=== PATIENT | female | born 1995 | race American Indian/Alaskan Native ===

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

== ENCOUNTER 2017-05-15 12:03 | Emergency (ER) | payer SELFPAY ==
[2017-05-15 12:11] VITALS: BP 127/66
[2017-05-15 13:36] LABS: BUN/Creatinine Ratio 15; Blood Urea Nitrogen 9 mg/dL (7-17); Calcium 8.9 mg/dL (8.4-10.2); Hemolysis Index 114
== END 2017-05-15 22:30 | disposition left against medical advice (07) ==
LOC: ED 12:03
DX: R07.9 Chest pain, unspecified (principal); Z53.21 Procedure and treatment not carried out due to patient leaving prior to being seen by health care provider
CPT/HCPCS: 80048; 93005; 93010

== ENCOUNTER 2017-05-18 19:05 | Emergency (ER) | payer SELFPAY ==
[2017-05-18] MEDS ORDERED: TYLENOL PO ONE (20:35)
[2017-05-18 20:41] LABS: Basophils % (Auto) 0.4 % (0.0-1.8); Eosinophils # (Auto) 0.1 K/mm3 (0.0-0.4); Eosinophils % (Auto) 1.8 % (0.0-4.3); Hemoglobin 12.5 gm/dl (10.1-14.3); Lymphocytes # (Auto) 1.4 K/mm3 (1.2-5.4); Mean Corpuscular HGB Conc 33 % (30-34); Mean Corpuscular Hemoglobin 30 pg (28-32); Mean Corpuscular Volume 90 fl (79-97); Monocytes # (Auto) 0.4 K/mm3 (0.0-0.8); Monocytes % (Auto) 7.4 % (0.0-7.3); Red Blood Count 4.22 M/mm3 (3.65-5.03); Red Cell Distribution Width 13.6 % (13.2-15.2)
[2017-05-18 20:48] LABS: Platelet Count 136 K/mm3 (140-440)
[2017-05-18 20:51] LABS: Partial Thromboplastin Time 26.4 Sec. (24.2-36.6)
--- NOTE | 2017-05-18 21:12 | Emergency Department Report ---
HPI - General Chief Complaint: Extremity Injury, Lower Time Seen by Provider: 05/18/17 20:40 - HPI HPI: 21-year-old female presents to the emergency department, dropped off by her mother, with a few different complaints. Patient says that she has had a 2- 3 day history of some midsternal nonradiating chest pain that is associated with some shortness of breath and a mixed dry and productive cough. She also has a 4-5 day history of some left calf pain but she denies any swelling or redness. Lastly, the patient says that she has been having some increased auditory hallucinations. They are not directing her to do anything and she denies any visual hallucinations, suicidal or homicidal ideations. She denies any history of schizophrenia or any other psychiatric history. She does have a past medical history of intracranial hypertension secondary to pseudotumor cerebri. No recent travel or sick contacts at home, no recent immobility or surgeries. She does not have a PCP. She has not taken anything for her symptoms presentation. She is a tobacco smoker but denies any illicit drug use. ED Past Medical Hx - Past Medical History Hx Hypertension: Yes (Intracranial Hypertension) Hx Asthma: Yes - Surgical History Additional Surgical History: tonsils/adnoids removed, cyst removed - Social History Smoking Status: Current Every Day Smoker Substance Use Type: None - Medications Home Medications: Home Medications Medication Instructions Recorded Confirmed Last Taken Type Naproxen [Naprosyn TAB] 500 mg PO BID #20 tablet 04/09/13 Unknown Rx Sulfamethoxazole/Trimethoprim 1 each PO BID #20 tablet 04/09/13 Unknown Rx [Bactrim DS] predniSONE [Deltasone] 40 mg PO QDAY #8 tab 01/17/14 Unknown Rx ALBUTEROL Inhaler [ProAir HFA 2 puff IH QID PRN #1 inhalation 07/10/14 Unknown Rx Inhaler] Albuterol *Only Ed* [Proventil 2.5 mg IH Q4H PRN 30 Days nebu 07/10/14 Unknown Rx 0.5% NEBS] Fluticasone/Salmeterol [Advair 1 puff IH BID #1 disk.w.dev 07/10/14 Unknown Rx Diskus 100-50 mcg] Loratadine [Claritin] 10 mg PO DAILY #30 tablet 07/10/14 Unknown Rx Penicillin Vk [Veetids TAB] 250 mg PO QID 10 Days tablet 08/08/14 Unknown Rx Ibuprofen [Motrin 800 MG tab] 800 mg PO Q8HR PRN #30 tablet 12/04/14 Unknown Rx traMADol [Ultram 50 MG tab] 50 mg PO Q6HR PRN #20 tablet 12/04/14 Unknown Rx ED Review of Systems ROS: Stated complaint: CP/COUGH Other details as noted in HPI Comment: All other systems reviewed and negative Constitutional: fever. denies: weakness Eyes: denies: eye pain, eye discharge, vision change ENT: denies: ear pain, throat pain Respiratory: cough, shortness of breath Cardiovascular: chest pain, palpitations. denies: edema Gastrointestinal: denies: abdominal pain, nausea, diarrhea Genitourinary: denies: urgency, dysuria, discharge Musculoskeletal: myalgia. denies: joint swelling Skin: denies: rash, lesions Neurological: denies: headache, weakness, paresthesias Physical Exam - Physical Exam Vital Signs: Vital Signs 05/18/17 05/18/17 19:21 20:50 Temperature 100.6 F H Pulse Rate 113 H Respiratory 16 18 Rate Blood Pressure 145/75 O2 Sat by Pulse 100 Oximetry Physical Exam: GENERAL: The patient is well-developed well-nourished. HENT: Normocephalic. Atraumatic. Patient has moist mucous membranes. EYES: Extraocular motions are intact. Pupils equal reactive to light bilaterally. NECK: Supple. Trachea is midline. CHEST/LUNGS: Clear to auscultation. There is no respiratory distress noted. HEART/CARDIOVASCULAR: Regular. There is no tachycardia. There is no murmur. ABDOMEN: Abdomen is soft, nontender. Patient has normal bowel sounds. Obese habitus. SKIN: Skin is warm and dry. There is no appreciable edema. NEURO: The patient is awake, alert, and oriented. The patient is cooperative. The patient has no focal neurologic deficits. The patient has normal speech and gait. MUSCULOSKELETAL: There is some tenderness palpation to the left calf but no obvious deformity.. There is no limitation range of motion. There is no evidence of acute injury. ED Course Vital Signs 05/18/17 05/18/17 19:21 20:50 Temperature 100.6 F H Pulse Rate 113 H Respiratory 16 18 Rate Blood Pressure 145/75 O2 Sat by Pulse 100 Oximetry ED Medical Decision Making - Lab Data Result diagrams: 05/18/17 20:37 05/18/17 20:37 - EKG Data -: EKG Interpreted by Me EKG shows normal: sinus rhythm, axis, intervals, QRS complexes, ST-T waves Rate: tachycardia (102 bpm) - EKG Data When compared to previous EKG there are: previous EKG unavailable Interpretation: other (Sinus tach, no STEMI) - Radiology Data Radiology results: report reviewed, image reviewed interpreted by me: Chest x-ray does not show any acute process. There are no pleural effusions, obvious pneumonia and there is no pneumothorax. PROCEDURE: NM LUNG SCAN PERF/VENT TECHNIQUE: Five mCi Tc-99m MAA was injected IV for pulmonary perfusion imaging in multiple projections. Fifteen mCi Xenon 133 gas was inhaled for pulmonary ventilation imaging in multiple projections. Injection site: RIGHT antecubital fossa. HISTORY: SOB, elevated dimer COMPARISON: Chest x-ray of the same date FINDINGS: Perfusion: There is 1 small subsegmental area of diminished perfusion identified in the right upper lung laterally. Remainder the lungs perfuse well.. Ventilation: No defects . IMPRESSION: Low probability of pulmonary embolus Transcribed By: [facility] Dictated By: KRYSTAL PAREKH MD Electronically Authenticated By: KRYSTAL PAREKH MD Signed Date/Time: 05/18/172105 - Medical Decision Making Patient presents to the emergency Department with complaints of some some chest tightness with a cough and low-grade fever. She complains of some left calf pain. She complains of some auditory hallucinations. Regarding the auditory hallucinations, they are intermittent and have been going on for a few months. Patient is calm and appropriate and does not have any suicidal or homicidal ideations and certainly does not appear to have any acute psychosis. Therefore she does not appear to be a candidate to be made a 1013 for inpatient psychiatric treatment. She was seen by the psych service station equipment mechanic who agrees that she is not a 1013 candidate and also got some more information that the voices she hears are from a man that she used to have intimate relations with in the past. The patient has been referred to the [facility] facility to speak with a psychiatrist regarding the hallucinations and/or some counseling. Regarding the left calf pain, the patient does have some tenderness to palpation but there is no appreciable edema. There is no rash or lesions. She does not have any risk factors for DVT. Nonetheless, the patient has been set up to return to the outpatient imaging for a left lower extremity venous Doppler since we are unable to do that this evening. The patient's labs have been mostly unremarkable. There is no leukocytosis, electrolyte abnormalities, renal insufficiency and the patient has negative troponin and a BNP of about 50. EKG is normal without ST elevation CO, ischemia or dysrhythmia. Chest x-ray does not show any acute process including no pneumothorax, pleural effusions or pneumonia. With the patient's complaint of left calf pain and some chest tightness, a d-dimer was done that came back slightly elevated and equivocal at 275. We are unable to do a CT angiography this evening so a VQ scan was done that came back low probability for a pulmonary embolism. The patient appears most likely to have an upper respiratory infection and/or viral syndrome. It is certainly possible that she has influenza. The symptoms have been going on for a few days and therefore she has not really a candidate for Tamiflu. She was given Tylenol and Toradol and a little bit of IV fluid and her vitals have improved and she is currently afebrile. She appears safe for discharge home at this time. She will get the venous Doppler done and if positive she'll be redirected to the emergency department. Otherwise she has been given multiple referrals for primary care clinics in the area. She will return to the ER with any worsening of her symptoms or any acute distress. - Differential Diagnosis URI, pneumonia, influenza, PE, DVT Critical Care Time: No Critical care attestation.: If time is entered above; I have spent that time in minutes in the direct care of this critically ill patient, excluding procedure time. ED Disposition Clinical Impression: Pain of left calf, Auditory hallucinations Upper respiratory infection Qualifiers: URI type: unspecified URI Qualified Code(s): J06.9 - Acute upper respiratory infection, unspecified Chest pain Qualifiers: Chest pain type: unspecified Qualified Code(s): R07.9 - Chest pain, unspecified Disposition: DC-01 TO HOME OR SELFCARE Is pt being admited?: No Condition: Stable Instructions: Chest Pain (ED), Fever in Adults (ED), Upper Respiratory Infection (ED) Additional Instructions: You have been given an order to return to the outpatient imaging center to have a left leg venous Doppler ultrasound to rule out a blood clot. If it resulted as positive, he will be redirected to the emergency department for further evaluation and treatment. Otherwise, follow-up with a primary care physician or primary care clinic as soon as possible. You can treat your fever and discomfort with Tylenol every 4 hours and ibuprofen every 6 hours, using weight-based dosing, as needed. Return to the emergency Department with any worsening of your symptoms or any acute distress. You have been given a referral for the [facility] facility to follow up regarding your auditory hallucinations and anxiety. Referrals: [facility] [Outside] - 3-5 Days [facility] [Outside] - 3-5 Days [facility] [Outside] - 3-5 Days [facility] [Outside] - 3-5 Days [facility] [Outside] - 3-5 Days Time of Disposition: 01:46
[2017-05-18 21:14] LABS: BUN/Creatinine Ratio 15; Blood Urea Nitrogen 9 mg/dL (7-17); Calcium 8.7 mg/dL (8.4-10.2); Hemolysis Index 63
[2017-05-18] MEDS ORDERED: TORADOL IV ONE (21:53)
[2017-05-18] MEDS ORDERED: NACL 0.9% 500 ML 500 ML IV ONE (21:53)
[2017-05-18] MEDS ORDERED: NACL 0.9% 1000 ML 1,000 ML ONE (22:38)
--- NOTE | 2017-05-18 23:45 | XRay Report ---
FINAL REPORT PROCEDURE: XR CHEST ROUTINE 2V TECHNIQUE: PA and lateral chest radiographs were obtained. CPT 06037 HISTORY: chestpain COMPARISON: No prior studies are available for comparison. FINDINGS: Heart: Normal. Mediastinum/Vessels: Normal. Lungs/Pleural space: Normal. Bony thorax: No acute osseous abnormality. Other: IMPRESSION: Normal examination.
--- NOTE | 2017-05-19 01:09 | Nuclear Medicine Report ---
FINAL REPORT PROCEDURE: NM LUNG SCAN PERF/VENT TECHNIQUE: Five mCi Tc-99m MAA was injected IV for pulmonary perfusion imaging in multiple projections. Fifteen mCi Xenon 133 gas was inhaled for pulmonary ventilation imaging in multiple projections. Injection site: RIGHT antecubital fossa. HISTORY: SOB, elevated dimer COMPARISON: Chest x-ray of the same date FINDINGS: Perfusion: There is 1 small subsegmental area of diminished perfusion identified in the right upper lung laterally. Remainder the lungs perfuse well.. Ventilation: No defects . IMPRESSION: Low probability of pulmonary embolus
[2017-05-19 01:21] VITALS: BP 122/49
== END 2017-05-19 02:00 | disposition home or self-care (01) ==
LOC: ED 19:05
DX: J06.9 Acute upper respiratory infection, unspecified (principal); R07.9 Chest pain, unspecified; I10 Essential (primary) hypertension; J45.909 Unspecified asthma, uncomplicated; F17.200 Nicotine dependence, unspecified, uncomplicated
CPT/HCPCS: 36415; 71046; 78582; 80048; 83880; 84484; 84703; 85025; 85379; 85610; 85730; 93005; 93010; 96374; 99284; A9540; A9558; J1885; J7030

== ENCOUNTER 2018-06-28 18:44 | Emergency (ER) | payer OTHER ==
--- NOTE | 2018-06-28 19:22 | Emergency Department Report ---
ED Psych HPI - General Chief Complaint: Psych Stated Complaint: MH Time Seen by Provider: 06/28/18 19:17 Source: patient, police Mode of arrival: Ambulatory - History of Present Illness Initial Comments: Patient is 22 years old female with history of depression on Zoloft. Patient brought to the emergency room via police for evaluation of anger outbursts at home. Patient stated that she had angry and she broke her mother at flower pot. Patient denied any suicidal ideation or homicidal ideation. No visual or auditory hallucination. Patient stated that she stop taking her Zoloft 2 weeks ago. Patient denied any other symptoms. MD Complaint: other (angery) History of same: No Quality: intermittent Associated Symptoms: denies other symptoms Treatments Prior to Arrival: none - Related Data Previous Rx's Medication Instructions Recorded Last Taken Type Naproxen [Naprosyn TAB] 500 mg PO BID #20 tablet 04/09/13 Unknown Rx Sulfamethoxazole/Trimethoprim 1 each PO BID #20 tablet 04/09/13 Unknown Rx [Bactrim DS] predniSONE [Deltasone] 40 mg PO QDAY #8 tab 01/17/14 Unknown Rx ALBUTEROL Inhaler (OR & NICU) 2 puff IH QID PRN #1 inhalation 07/10/14 Unknown Rx [ProAir HFA Inhaler] Albuterol *Only Ed* [Proventil 2.5 mg IH Q4H PRN 30 Days nebu 07/10/14 Unknown Rx 0.5% NEBS] Fluticasone/Salmeterol [Advair 1 puff IH BID #1 disk.w.dev 07/10/14 Unknown Rx Diskus 100-50 mcg] Loratadine [Claritin] 10 mg PO DAILY #30 tablet 07/10/14 Unknown Rx Penicillin Vk [Veetids TAB] 250 mg PO QID 10 Days tablet 08/08/14 Unknown Rx Ibuprofen [Motrin 800 MG tab] 800 mg PO Q8HR PRN #30 tablet 12/04/14 Unknown Rx traMADol [Ultram 50 MG tab] 50 mg PO Q6HR PRN #20 tablet 12/04/14 Unknown Rx Menthol/Camphor [Magnolia Correll 1 applic TP TID PRN #1 tube 03/27/18 Unknown Rx Ointment] Naproxen [Naprosyn] 500 mg PO BID PRN #30 tablet 03/27/18 Unknown Rx Allergies Allergy/AdvReac Type Severity Reaction Status Date / Time Johnson Allergy Anaphylaxis Verified 05/04/14 09:13 raspberry Allergy Anaphylaxis Verified 05/04/14 09:13 tomato Allergy Anaphylaxis Verified 05/04/14 09:13 ED Review of Systems ROS: Stated complaint: MH Other details as noted in HPI Comment: All other systems reviewed and negative Constitutional: denies: chills, fever Respiratory: denies: cough, orthopnea, shortness of breath, SOB with exertion, SOB at rest Cardiovascular: denies: chest pain, palpitations Gastrointestinal: denies: abdominal pain, nausea, vomiting Genitourinary: denies: urgency, dysuria Musculoskeletal: denies: back pain Neurological: denies: headache, weakness Psychiatric: anxiety. denies: depression, auditory hallucinations, visual hallucinations, homicidal thoughts, suicidal thoughts ED Past Medical Hx - Past Medical History Previous Medical History?: Yes Hx Hypertension: Yes (Intracranial Hypertension) Hx Psychiatric Treatment: Yes (Anxiety, depression, schizoaffective,) Hx Asthma: Yes - Surgical History Past Surgical History?: Yes Additional Surgical History: tonsils/adnoids removed, cyst removed - Social History Smoking Status: Current Every Day Smoker - Medications Home Medications: Home Medications Medication Instructions Recorded Confirmed Last Taken Type Naproxen [Naprosyn TAB] 500 mg PO BID #20 tablet 04/09/13 Unknown Rx Sulfamethoxazole/Trimethoprim 1 each PO BID #20 tablet 04/09/13 Unknown Rx [Bactrim DS] predniSONE [Deltasone] 40 mg PO QDAY #8 tab 01/17/14 Unknown Rx ALBUTEROL Inhaler (OR & NICU) 2 puff IH QID PRN #1 inhalation 07/10/14 Unknown Rx [ProAir HFA Inhaler] Albuterol *Only Ed* [Proventil 2.5 mg IH Q4H PRN 30 Days nebu 07/10/14 Unknown Rx 0.5% NEBS] Fluticasone/Salmeterol [Advair 1 puff IH BID #1 disk.w.dev 07/10/14 Unknown Rx Diskus 100-50 mcg] Loratadine [Claritin] 10 mg PO DAILY #30 tablet 07/10/14 Unknown Rx Penicillin Vk [Veetids TAB] 250 mg PO QID 10 Days tablet 08/08/14 Unknown Rx Ibuprofen [Motrin 800 MG tab] 800 mg PO Q8HR PRN #30 tablet 12/04/14 Unknown Rx traMADol [Ultram 50 MG tab] 50 mg PO Q6HR PRN #20 tablet 12/04/14 Unknown Rx Menthol/Camphor [Magnolia Correll 1 applic TP TID PRN #1 tube 03/27/18 Unknown Rx Ointment] Naproxen [Naprosyn] 500 mg PO BID PRN #30 tablet 03/27/18 Unknown Rx ED Physical Exam - General Limitations: No Limitations General appearance: alert, in no apparent distress - Head Head exam: Present: atraumatic, normocephalic, normal inspection - Eye Eye exam: Present: normal appearance, PERRL - ENT ENT exam: Present: normal exam, normal orophraynx, mucous membranes moist - Neck Neck exam: Present: normal inspection, full ROM. Absent: tenderness, meningismus, lymphadenopathy, thyromegaly - Respiratory Respiratory exam: Present: normal lung sounds bilaterally - Cardiovascular Cardiovascular Exam: Present: regular rate, normal rhythm, normal heart sounds - GI/Abdominal GI/Abdominal exam: Present: soft, normal bowel sounds. Absent: distended, tende rness, guarding, rebound, rigid, organomegaly, mass, bruit, pulsatile mass - Extremities Exam Extremities exam: Present: normal inspection, full ROM, normal capillary refill - Back Exam Back exam: Present: normal inspection - Neurological Exam Neurological exam: Present: alert, oriented X3, CN II-XII intact, normal gait - Psychiatric Psychiatric exam: Present: normal mood. Absent: depressed, agitated, anxious, flat affect, manic, homicidal ideation, suicidal ideation - Skin Skin exam: Present: warm, intact, normal color ED Course Vital Signs 06/28/18 06/28/18 18:47 20:08 Temperature 98.2 F 98.5 F Pulse Rate 87 89 Respiratory 18 18 Rate Blood Pressure 136/73 Blood Pressure 121/76 [Right] O2 Sat by Pulse 100 100 Oximetry ED Medical Decision Making - Lab Data Result diagrams: 06/28/18 19:32 06/28/18 19:32 - Medical Decision Making Patient is 22 years old female with history of depression on Zoloft. Patient brought to the emergency room via police for evaluation of anger outbursts at home. Patient stated that she had angry and she broke her mother at flower pot. Patient denied any suicidal ideation or homicidal ideation. No visual or auditory hallucination. Patient stated that she stop taking her Zoloft 2 weeks ago. Patient denied any other symptoms. Patient remained calm in the ER. Patient has been evaluated by mental health. Recommended for outpatient follow-up. Patient does not meet any criteria for involuntary holding. Patient would be discharged home to follow-up as an outpatient. Critical care attestation.: If time is entered above; I have spent that time in minutes in the direct care of this critically ill patient, excluding procedure time. ED Disposition Clinical Impression: Outbursts of anger, Depression Disposition: DC-01 TO HOME OR SELFCARE Is pt being admited?: No Condition: Stable Instructions: Depression (ED) Referrals: JAYCEE CAMPBELL MD [Primary Care Provider] - 3-5 Days
[2018-06-28 20:09] VITALS: BP 121/76
[2018-06-28 20:10] LABS: Hematocrit 41.8 % (30.3-42.9); Hemoglobin 13.5 gm/dl (10.1-14.3); Mean Corpuscular HGB Conc 32 % (30-34); Mean Corpuscular Volume 92 fl (79-97); Platelet Count 324 K/mm3 (140-440); Red Blood Count 4.55 M/mm3 (3.65-5.03); Red Cell Distribution Width 14.3 % (13.2-15.2)
[2018-06-28 20:14] LABS: BUN/Creatinine Ratio 13; Blood Urea Nitrogen 9 mg/dL (7-17); Calcium 9.5 mg/dL (8.4-10.2); Hemolysis Index 24
[2018-06-28 20:16] LABS: Lymphocytes % (Auto) 31.4 % (13.4-35.0); Monocytes % (Auto) 3.5 % (0.0-7.3)
[2018-06-28 20:20] LABS: Basophils # (Auto) 0.1 K/mm3 (0.0-0.1); Eosinophils # (Auto) 0.1 K/mm3 (0.0-0.4); Lymphocytes # (Auto) 2.3 K/mm3 (1.2-5.4); Monocytes # (Auto) 0.3 K/mm3 (0.0-0.8)
[2018-06-28 20:39] LABS: Amphetamine Screen,Urine PRESUMPTIVE NEGATIVE; Benzodiazepines Screen,Urine PRESUMPTIVE NEGATIVE; Cocaine Screen,Urine PRESUMPTIVE NEGATIVE; Methadone Screen,Urine PRESUMPTIVE NEGATIVE; Opiate Screen,Urine PRESUMPTIVE NEGATIVE
[2018-06-28 20:53] LABS: Cannabinoid Screen,Urine PRESUMPTIVE POSITIVE
[2018-06-28 20:54] LABS: Bilirubin,Urine NEG (Negative); Blood,Urine NEG (Negative); Color,Urine Colorless (Yellow); Protein,Urine <15 mg/dL mg/dL (Negative); RBC,Urine < 1.0 /HPF (0.0-6.0); Urobilinogen,Urine < 2.0 mg/dL (<2.0)
== END 2018-06-28 21:33 | disposition home or self-care (01) ==
LOC: EEVIPCON 18:44 → ED 18:44
DX: F32.9 Major depressive disorder, single episode, unspecified (principal); R45.4 Irritability and anger; F25.9 Schizoaffective disorder, unspecified; J45.909 Unspecified asthma, uncomplicated; F17.200 Nicotine dependence, unspecified, uncomplicated
CPT/HCPCS: 36415; 80048; 80307; 81001; 84703; 85025; 99284; G0480; 80320

== ENCOUNTER 2019-01-21 14:29 | Emergency (ER) | payer SELFPAY ==
[2019-01-21 15:00] LABS: Basophils % (Auto) 0.7 % (0.0-1.8); Eosinophils # (Auto) 0.1 K/mm3 (0.0-0.4); Eosinophils % (Auto) 2.7 % (0.0-4.3); Hematocrit 37.8 % (30.3-42.9); Hemoglobin 12.6 gm/dl (10.1-14.3); Lymphocytes # (Auto) 1.8 K/mm3 (1.2-5.4); Lymphocytes % (Auto) 34.7 % (13.4-35.0); Mean Corpuscular HGB Conc 33 % (30-34); Mean Corpuscular Volume 89 fl (79-97); Monocytes # (Auto) 0.2 K/mm3 (0.0-0.8); Monocytes % (Auto) 3.4 % (0.0-7.3); Platelet Count 348 K/mm3 (140-440); Red Blood Count 4.26 M/mm3 (3.65-5.03); Red Cell Distribution Width 13.6 % (13.2-15.2)
[2019-01-21 15:12] LABS: BUN/Creatinine Ratio 8; Blood Urea Nitrogen 6 mg/dL (7-17); Calcium 8.9 mg/dL (8.4-10.2); Hemolysis Index 23
--- NOTE | 2019-01-21 15:16 | Emergency Department Report ---
<LEXI CHRISTIANSENCarolann Alonzo - Last Filed: 01/22/19 10:32> ED Psych HPI - General Chief Complaint: Psych Stated Complaint: MH/POSS OVERDOSE Time Seen by Provider: 01/21/19 14:48 - Related Data Home Medications Medication Instructions Recorded Confirmed Last Taken ALBUTEROL Inhaler (OR & NICU) 2 puff IH QID PRN 01/21/19 01/21/19 Unknown [Proair] QUEtiapine [SEROquel] 300 mg PO QHS 01/21/19 01/22/19 Unknown Sertraline [Zoloft] 50 mg PO QAM 01/21/19 01/22/19 Unknown hydrOXYzine PAMOATE [Vistaril] 50 mg PO BID 01/21/19 01/22/19 Unknown Allergies Allergy/AdvReac Type Severity Reaction Status Date / Time Johnson Allergy Anaphylaxis Verified 01/21/19 14:34 raspberry Allergy Anaphylaxis Verified 01/21/19 14:34 tomato Allergy Anaphylaxis Verified 01/21/19 14:34 ED Past Medical Hx - Medications Home Medications: Home Medications Medication Instructions Recorded Confirmed Last Taken Type ALBUTEROL Inhaler (OR & NICU) 2 puff IH QID PRN 01/21/19 01/21/19 Unknown History [Proair] QUEtiapine [SEROquel] 300 mg PO QHS 01/21/19 01/22/19 Unknown History Sertraline [Zoloft] 50 mg PO QAM 01/21/19 01/22/19 Unknown History hydrOXYzine PAMOATE [Vistaril] 50 mg PO BID 01/21/19 01/22/19 Unknown History ED Course - Reevaluation(s) Reevaluation #1: 01/22/19 10:33 Patient has become agitated cussing at staff she is to stay in her room. Provider ordered Haldol 5 mg IM and Ativan 2 mg IM. ED Medical Decision Making - Lab Data Result diagrams: 01/21/19 14:38 01/21/19 14:38 ED Disposition Clinical Impression: Suicidal ideation, Overdose Disposition: DC/TX-65 PSY HOSP/PSY UNIT Condition: Stable Referrals: PRIMARY CARE,MD [Primary Care Provider] - 3-5 Days <ROSA GONZALEZ - Last Filed: 01/22/19 21:26> ED Psych HPI - General Source: patient, family Mode of arrival: Ambulatory - History of Present Illness Initial Comments: 23-year-old female with history of schizophrenia presents to ED with attempted overdose. Patient states she took 10 trazodone pills approximately one hour ago in a suicide attempt. Patient states she does not want to be here anymore. Patient currently takes Vistaril, Seroquel, Zoloft. Mother states patient is no longer prescribed trazodone. Mother states she has been calling police on patient all week due to her being violated, punching holes in dixon. Mother called police on patient today, patient ran away from the house. A bystander called police because she was lying in the grass. Patient states she was in the grass because she got hot and tired. Patient reports auditory hallucinations, states voices are telling her that people hate her. Complaint: suicidal ideation Associated Psychiatric Symptoms: depression, suicidal ideation, auditory hallucinations History of same: Yes Quality: constant Improves With: none Worsens With: none Associated Symptoms: denies other symptoms Treatments Prior to Arrival: none If Self Harm: intentional overdose Details of Plan: overdose on trazadone ED Review of Systems ROS: Stated complaint: MH/POSS OVERDOSE Other details as noted in HPI Comment: All other systems reviewed and negative Psychiatric: auditory hallucinations, suicidal thoughts ED Past Medical Hx - Past Medical History Previous Medical History?: Yes Hx Hypertension: Yes (Intracranial Hypertension) Hx Psychiatric Treatment: Yes (Anxiety, depression, schizoaffective,) Hx Asthma: Yes - Surgical History Past Surgical History?: Yes Additional Surgical History: tonsils/adnoids removed, cyst removed - Social History Smoking Status: Current Every Day Smoker Substance Use Type: Alcohol, Marijuana ED Physical Exam - General Limitations: No Limitations General appearance: alert, in no apparent distress, obese - Head Head exam: Present: atraumatic, normocephalic - Eye Eye exam: Present: normal appearance, PERRL, EOMI - ENT ENT exam: Present: mucous membranes moist - Neck Neck exam: Present: normal inspection - Respiratory Respiratory exam: Present: normal lung sounds bilaterally. Absent: respiratory distress - Cardiovascular Cardiovascular Exam: Present: normal rhythm, tachycardia - GI/Abdominal GI/Abdominal exam: Present: soft. Absent: distended, tenderness - Extremities Exam Extremities exam: Present: normal inspection - Neurological Exam Neurological exam: Present: alert, oriented X3, CN II-XII intact. Absent: motor sensory deficit - Psychiatric Psychiatric exam: Present: depressed, suicidal ideation - Skin Skin exam: Present: warm, dry, intact, normal color ED Course Vital Signs 01/21/19 01/21/19 01/21/19 14:34 19:03 21:01 Temperature 97.8 F 98 F Pulse Rate 112 H 71 73 Respiratory 18 16 16 Rate Blood Pressure 137/72 Blood Pressure 114/40 123/65 [Left] O2 Sat by Pulse 98 99 98 Oximetry 01/22/19 01/22/19 01/22/19 02:46 08:43 20:00 Temperature 98 F 98.2 F 97.3 F L Pulse Rate 66 68 81 Respiratory 18 16 18 Rate Blood Pressure Blood Pressure 144/63 108/54 118/70 [Left] O2 Sat by Pulse 95 96 94 Oximetry ED Medical Decision Making - Lab Data Result diagrams: 01/21/19 14:38 01/21/19 14:38 - EKG Data -: EKG Interpreted by Mt EKG shows normal: sinus rhythm, axis, intervals, QRS complexes, ST-T waves Rate: normal - EKG Data Interpretation: no acute changes - Medical Decision Making 23 yo F w/ report of trazadone ingestion, 10 pills, approx 1 hr prior to arrival in a suicide attempt. Poison control was contacted, no charcoal administration advised. Recommended supportive care. Labs are normal. Drug screen is positive for marijuana. The fluids being given. EKG is normal. Vital signs are stable. Patient placed on 1013. Will dispo per psych. Critical care attestation.: If time is entered above; I have spent that time in minutes in the direct care of this critically ill patient, excluding procedure time. ED Disposition Is pt being admited?: No
[2019-01-21 16:09] LABS: Bacteria,Urine 1+ /HPF (Negative); Bilirubin,Urine NEG (Negative); Blood,Urine LG (Negative); Color,Urine Yellow (Yellow); Mucus,Urine 1+ /HPF
[2019-01-21] MEDS ORDERED: SODIUM CHLORIDE 0.9% 1000 ML 1,000 ML IV ONE (16:10)
[2019-01-21 16:11] LABS: HCG Qualitative,Urine Negative (Negative)
[2019-01-21 16:16] LABS: Benzodiazepines Screen,Urine PRESUMPTIVE NEGATIVE; Cocaine Screen,Urine PRESUMPTIVE NEGATIVE; Methadone Screen,Urine PRESUMPTIVE NEGATIVE; Opiate Screen,Urine PRESUMPTIVE NEGATIVE
[2019-01-21 16:28] LABS: Amphetamine Screen,Urine PRESUMPTIVE POSITIVE; Cannabinoid Screen,Urine PRESUMPTIVE POSITIVE
[2019-01-21 17:57] LABS: Alanine Aminotransferase 19 units/L (7-56); Albumin 4.1 g/dL (3.9-5)
[2019-01-21 17:58] LABS: Bilirubin,Direct < 0.2 mg/dL (0-0.2)
--- NOTE | 2019-01-22 09:48 | Consultation ---
History of Present Illness - Reason for Consult Consult date: 01/22/19 Reason for consult: Mental Health Evaluation Requesting physician: ROSA GONZALEZ - Chief Complaint Chief complaint: 'I don't want to talk" - History of Present Psychiatric Illness 23 y.o. AA female who presented to the ER for overdosing on several Trazodone pills. Today the patient was calm, but requested that the psy assessment be completed tomorrow. She do not want to talk at this time. Medications and Allergies Allergies Allergy/AdvReac Type Severity Reaction Status Date / Time Johnson Allergy Anaphylaxis Verified 01/21/19 14:34 raspberry Allergy Anaphylaxis Verified 01/21/19 14:34 tomato Allergy Anaphylaxis Verified 01/21/19 14:34 Home Medications Medication Instructions Recorded Confirmed Last Taken Type ALBUTEROL Inhaler (OR & NICU) 2 puff IH QID PRN 01/21/19 01/21/19 Unknown History [Proair] QUEtiapine [SEROquel] 200 mg PO QHS 01/21/19 01/21/19 Unknown History Sertraline [Zoloft] 200 mg PO QHS 01/21/19 01/21/19 Unknown History hydrOXYzine PAMOATE [Vistaril] 25 mg PO BID 01/21/19 01/21/19 Unknown History Past psychiatric history - Past Medical History Past Medical History: other (Unable to obtain ) Past Surgical History: Other (Unable to obtain ) - past Psychiatric treatment and history psychiatric treatment history: Unable to obtain a psy hx and a fam psy hx. - Social History Social history: other (Unabel to obtain ) Mental Status Exam - Vital signs Last Vital Signs Temp 98.2 F 01/22/19 08:43 Pulse 68 01/22/19 08:43 Resp 16 01/22/19 08:43 BP 108/54 01/22/19 08:43 Pulse Ox 96 01/22/19 08:43 - Exam Narrative exam: Unable to complete the MSE at this time. See impression. Results Result Diagrams: 01/21/19 14:38 01/21/19 14:38 Abnormal lab results 01/21/19 01/21/19 01/21/19 Range/Units 14:38 14:38 14:38 Carbon Dioxide 19 L (22-30) mmol/L BUN 6 L (7-17) mg/dL Salicylates < 0.3 L (2.8-20.0) mg/dL Acetaminophen < 5.0 L (10.0-30.0) ug/mL All other labs normal. Assessment and Plan Assessment and plan: Impression: Today the patient was calm, but requested that the psy assessment be completed in 24 hours. She do not want to talk at this time. The patient was positive for amphetamines and marijuana. Recommendation/Plan: Continue 1013. Dispo: The patient was referred to inpatient psy services. Will staff with Dr Deborah Weber.
[2019-01-22] MEDS ORDERED: LORazepam 2 MG/ML VIAL IM ONE (10:31)
[2019-01-22] MEDS ORDERED: HALOPERIDOL LACTATE 5 MG/1 ML INJ IM ONE (10:31)
[2019-01-22] MEDS ORDERED: LORazepam 2 MG/ML VIAL ONE (10:34)
[2019-01-22] MEDS ORDERED: ZIPRASIDONE MESYLATE 20 MG VIAL IM ONE ×2 (10:35→12:00)
[2019-01-22] MEDS ORDERED: KETAMINE 500 MG/5 ML VIAL MDV IM ONE (10:54)
[2019-01-22] MEDS ORDERED: ALBUTEROL 8.5 GM INHALATION IH PRN (21:09)
[2019-01-22] MEDS ORDERED: QUEtiapine 100 MG TAB PO SCH (22:00)
[2019-01-22] MEDS ORDERED: QUEtiapine 200 MG TAB PO SCH (22:00)
--- NOTE | 2019-01-23 09:19 | Progress Note ---
Subjective - Reason for Consult Consult date: 01/23/19 Reason for consult: Psychiatry Follow-up - Chief Complaint Chief complaint: 'I'm having issues with my mother" 23 y.o. AA female who presented to the ER for overdosing on several Trazodone pills. Today the patient was calm during the assessment. She stated that she got into an argument with her mother and decided to take several Trazodone pills. She stated that she wanted everything to go away, she would not confirm or deny that she attempted suicide. She denies any previous suicide attempts. She stated that she is seen at [facility] for depression/anxiety. She rate her depression 8/10, with h1o being the worse. She was asked about other stressors, she didn't answer the question. She denies SI/HI's and AVH's. She stated that she feel "sleepy." She acknowledged smoking marijuana, but denies amphetamine use. She denies alcohol consumption (etoh). Mental Status Exam - Vital signs Last Vital Signs Temp 97.9 F 01/23/19 07:00 Pulse 61 01/23/19 07:00 Resp 18 01/23/19 07:00 BP 117/72 01/23/19 07:00 Pulse Ox 100 01/23/19 07:00 - Exam Narrative exam: MSE: Appearance: calm Behavior: regular eye contact Speech: regular rate and loud tone Mood: "depressed" Affect: congruent to mood Thought Process: circumstantial Thought Content: denies SI/HI's with AVH's Motor Activity: ambulatory Cognition: A/Ox 3 Insight: variable Judgment: poor + Assessment and Plan Impression: MDD. Cannabis Use DO. Hx of Anxiety. Family Dynamic issues. Today the patient was calm during the assessment. DDx: Substance Induced Mood DO, Substance Use DO (amphetamines) Recommendation/Plan: Continue 1013, Zoloft 50 mg PO daily for depression/anxiety, and modify Vistaril to 25 mg PO BID for anxiety. Discussed possible suicidality/medication induced eugenio with the patient reference Zoloft, she verbalized understanding. Dispo: The patient was referred to inpatient psy services. Staffed with Dr Deborah Weber.
[2019-01-23] MEDS: SERTRALINE 50 MG TAB PO SCH (11:00)
[2019-01-24] MEDS ORDERED: hydrOXYzine PAMOATE 25 MG CAP PO SCH (10:00)
--- NOTE | 2019-01-24 12:36 | Progress Note ---
Subjective - Reason for Consult Consult date: 01/24/19 Reason for consult: Psychiatry Follow-up - Chief Complaint Chief complaint: 'I have plenty issues" 23 y.o. AA female who presented to the ER for overdosing on several Trazodone pills. Today the patient was cooperative, but somewhat hyper verbal during the assessment. She stated that there's "demons" at her home and the family is aware of it. She stated that she was trying to explain to her mother about the "demons" and they had an argument. The patient's presentation have changed since yesterday, she appears delusional. She denies HI's and VH's. She would not confirm or deny SI's and AH's. No indications of side effects from her medication. Mental Status Exam - Vital signs Last Vital Signs Temp 98.1 F 01/24/19 09:15 Pulse 72 01/24/19 09:15 Resp 16 01/24/19 09:15 BP 115/80 01/24/19 09:15 Pulse Ox 98 01/24/19 09:15 - Exam Narrative exam: MSE: Appearance: calm Behavior: regular eye contact Speech: regular rate and loud tone Mood: "depressed" Affect: congruent to mood Thought Process: circumstantial Thought Content: denies SI/HI's with VH's, delusional Motor Activity: ambulatory Cognition: A/Ox 3 Insight: variable Judgment: poor + Assessment and Plan Impression: MDD. Cannabis Use DO. Hx of Anxiety. Family Dynamic issues. Today the patient was cooperative, but somewhat hyper verbal during the assessment. Additional Dx: Unspecified Psychosis DDx: Substance Induced Mood DO, Substance Use DO (amphetamines) Recommendation/Plan: Continue 1013 and Zoloft 50 mg PO daily for depression/anxiety. Start Abilify 5 mg PO daily for mood/psychosis and Buspar 7.5 mg PO BID for anxiety. Discussed possible suicidality/medication induced eugenio with the patient reference Zoloft, she verbalized understanding. Discussed possible metabolic side effects of Abilify with the patient, she verbalized understanding Dispo: The patient was referred to inpatient psy services. Will staff with Dr Deborah Weber.
[2019-01-24] MEDS: SERTRALINE 50 MG TAB PO SCH (13:56)
[2019-01-24] MEDS: busPIRone 5 MG TAB PO SCH ×2 (14:00→21:36)
[2019-01-24] MEDS: ARIPiprazole 10 MG TAB PO SCH (14:08)
[2019-01-24] MEDS ORDERED: ARIPiprazole 10 MG TAB PO SCH (22:00)
[2019-01-25 07:22] LABS: Chol/HDL Ratio 5.86 %
--- NOTE | 2019-01-25 09:42 | Progress Note ---
Subjective - Reason for Consult Consult date: 01/25/19 Reason for consult: Psychiatry Follow-up - Chief Complaint Chief complaint: 'I want to get along with my family" 23 y.o. AA female who presented to the ER for overdosing on several Trazodone pills. Today the patient was calm and cooperative during the assessment. She stated that she plan to get along better wit her family. She was asked about "demons" being presented, she stated, "I don't think so." She denies SI/HI's and AVH's. She denies any side effects from her medication. Mental Status Exam - Vital signs Last Vital Signs Temp 98.3 F 01/25/19 07:00 Pulse 76 01/25/19 07:00 Resp 18 01/25/19 07:00 BP 132/86 01/25/19 07:00 Pulse Ox 97 01/25/19 07:00 - Exam Narrative exam: MSE: Appearance: calm Behavior: regular eye contact Speech: regular rate and loud tone Mood: "okay" Affect: congruent to mood Thought Process: circumstantial Thought Content: denies SI/HI's with AVH's Motor Activity: ambulatory Cognition: A/Ox 3 Insight: variable to fair Judgment: variable to fair + Assessment and Plan Impression: MDD. Cannabis Use DO. Hx of Anxiety. Family Dynamic issues. Today the patient was calm and cooperative during the assessment. Additional Dx: Unspecified Psychosis DDx: Substance Induced Mood DO, Substance Use DO (amphetamines) Recommendation/Plan: Reevaluate the patient's 1013 in 24 hours, Continue Zoloft 50 mg PO daily for depression/anxiety., Abilify 5 mg PO daily for mood/psychosis, and Buspar 7.5 mg PO BID for anxiety. Discussed possible suicidality/medication induced eugenio with the patient reference Zoloft, she verbalized understanding. Discussed possible metabolic side effects of Abilify with the patient, she verbalized understanding Dispo: If the patient's 1013 is rescinded in 24 hours, she can follow up with [facility] for outpatient psy services. Will staff with Dr Deborah Weber.
[2019-01-25] MEDS: busPIRone 5 MG TAB PO SCH ×2 (11:00→22:00)
[2019-01-25] MEDS: ARIPiprazole 10 MG TAB PO SCH (11:00)
[2019-01-25] MEDS: SERTRALINE 50 MG TAB PO SCH (11:00)
[2019-01-26] MEDS ORDERED: ZIPRASIDONE MESYLATE 20 MG VIAL IM ONE (10:41)
[2019-01-26] MEDS ORDERED: LORazepam 2 MG/ML VIAL IM ONE (10:41)
[2019-01-26] MEDS ORDERED: WATER FOR INJ Sterile (PF) 10 ML ONE (10:48)
[2019-01-26] MEDS: ARIPiprazole 10 MG TAB PO SCH (11:19)
[2019-01-26] MEDS: busPIRone 5 MG TAB PO SCH ×2 (11:19→23:41)
[2019-01-26] MEDS: SERTRALINE 50 MG TAB PO SCH (11:20)
--- NOTE | 2019-01-26 13:59 | Progress Note ---
Subjective - Reason for Consult Consult date: 01/26/19 Reason for consult: Psychiatric Follow-up Evaluation - Chief Complaint Chief complaint: "I'm good." Patient is a 23 y.o. AA female who presented to the ER after overdosing on several Trazodone pills. Today the patient is calm and cooperative during the assessment. She stated when I leave here I plan to go to [facility]. She reports decrease sleep and appropriate appetite. Asad vu is requesting sleep medication. She denies SI/HI's, AVH's, and delusions. She denies any side effects from her medication. Mental Status Exam - Vital signs Last Vital Signs Temp 98.1 F 01/26/19 09:43 Pulse 88 01/26/19 09:43 Resp 20 01/26/19 09:43 BP 98/72 01/26/19 09:43 Pulse Ox 99 01/26/19 01:16 - Exam Narrative exam: MSE: Appearance: calm, cooperative Behavior: regular eye contact Speech: regular rate and loud tone Mood: "I'm good" Affect: congruent to mood Thought Process: circumstantial Thought Content: denies SI/HI's, AVH's, and delusions Motor Activity: ambulatory Cognition: A/O x 3 Insight: variable to fair Judgment: variable to fair Assessment and Plan Impression: MDD. Cannabis Use DO. Hx of Anxiety. Family Dynamic issues. Today the patient is calm and cooperative during the assessment. She denies SI/HI's, A/VH's, and delusions. Additional Dx: Unspecified Psychosis DDx: Substance Induced Mood DO, Substance Use DO (amphetamines) Recommendation/Plan: 1. Will reevaluate the patient's 1013 in 24 hours. 2. Continue Zoloft 50 mg PO daily for depression/anxiety., Abilify 5 mg PO daily for mood/psychosis, and Buspar 7.5 mg PO BID for anxiety. Discussed possible suicidality/medication induced eugenio with the patient reference Zoloft, she verbalized understanding. Discussed possible metabolic side effects of Abilify with the patient, she verbalized understanding. 3. Will start Melatonin 5mg po QHS insomnia. Disposition: If the patient's 1013 is rescinded in 24 hours, she can follow up with [facility] for outpatient psy services. Will staff with Dr. Deborah Weber.
[2019-01-26] MEDS ORDERED: MELATONIN 5 MG TAB PO SCH (22:00)
[2019-01-27] MEDS: ARIPiprazole 10 MG TAB PO SCH (10:20)
[2019-01-27 10:39] VITALS: BP 128/82
[2019-01-27] MEDS: SERTRALINE 50 MG TAB PO SCH (11:15)
[2019-01-27] MEDS: busPIRone 5 MG TAB PO SCH (11:20)
--- NOTE | 2019-01-27 11:59 | Progress Note ---
Subjective - Reason for Consult Consult date: 01/27/19 Reason for consult: Psychiatry Follow-up - Chief Complaint Chief complaint: "I need to stay off the drugs"" Patient is a 23 y.o. AA female who presented to the ER after overdosing on several Trazodone pills. Today the patient was calm and cooperative during the assessment. She stated that she plan to follow up with [facility] for outpatient psy/rehab services when discharged. Per collateral information form the patient's mother Gopi Frye at [phone], she stated that her daughter's behavior can be erratic when she use drug and not compliant with her psy medications. She stated that her daughter can return home. The patient denies SI/HI's sand AVH's. She denies any side effects from her medication. Mental Status Exam - Vital signs Last Vital Signs Temp 98.3 F 01/27/19 07:45 Pulse 91 H 01/27/19 07:45 Resp 20 01/27/19 07:45 BP 128/82 01/27/19 07:45 Pulse Ox 99 01/27/19 07:45 - Exam Narrative exam: MSE: Appearance: calm, cooperative Behavior: regular eye contact Speech: regular rate and loud tone Mood: "okay" Affect: congruent to mood Thought Process: linear Thought Content: denies SI/HI's with AVH's Motor Activity: ambulatory Cognition: A/Ox 3 Insight: appropriate Judgment: appropriate Assessment and Plan Impression: MDD. Cannabis Use DO. Hx of Anxiety. Family Dynamic issues. Today the patient was calm and cooperative during the assessment. The patient is no threat to self nor psychotic. Additional Dx: Unspecified Psychosis DDx: Substance Induced Mood DO, Substance Use DO (amphetamines) Suicide Risk Assessment I. This screening and assessment is based on information collected from the following sources: II. SUICIDE RISK SCREENING (within last 30 days): A.) Suicidal thoughts/behaviors: Yes SUICIDE RISK ASSESSMENT III. FACTORS THAT INCREASE RISK: A.) Demographic and Substance Use Factors: Yes (Marijuana and Amphetamines) B.) Current/Recent Factors (within past 3 months): Psychosocial/Environmental Factors: Family Dynamics Issues Physical Illness: None Cognitive/Psychological Factors: None C.) Historical Factors: None D.) Diagnostic/Symptom/Treatment Factors: None E.) Acute Risk Factor Severity (DESC; MILD/MOD/SEVERE): Mild Other factors for this individual that increase risk: None IV. FACTORS THAT DECREASE RISK: Resilience/Protective Factors: Patient want to get along with her mother Other factors for this individual that decrease risk: Patient denies a desire to harm self V. Clinician's Formulation of Risk and Determination of level of Care: This is a 23 y.o. AA female who ingested several Trazodone pills prior to her arrival to the ER. She stated that she wanted to "sleep" and thats was her reason for taking the pills. The patient has a hx of substance abuse. She stated that she will follow-up with outpatient psy/rehab services once discharged. She has become insightful about how to better address her current issues. The patient is not impaired by substance at this time. She is able to take care of her ADLs and is not at imminent risk of harm to self or others. Consequently, it is the opinion of the treatment team that the patient is at low risk of suicide and does not meet criteria to continue an involuntary psychiatric hold. Estimation of Imminent Risk: Low due to the above explanation. Determination of Level of Care based on Suicide Risk: Outpatient follow-up. Narrative description of clinical reasoning. Given the fact that the patient is willing to engage in outpatient psy/rehab services care and has a supportive network (mother), it is reasonable to expect that the patient will seek services. At this current time, she is not impulsive and does not have any risk factors to increase the likelihood of her impulsive behavior. Therefore, it is reasonable to expect that the patient will engage in outpatient psy/rehab services which will reduce further unsafe behaviors. . Plan and Interventions based on Suicide Risk: This patient will likely be stepped down to an outpatient mental health center in the community upon discharge and follow-up within 7 days of her discharge from the hospital. VII. Discharge/After Hours Support Plan: Patient can return back to the ER, call 911 or crisis line if symptoms of depression, anxiety, suicidality return. Recommendation/Plan: Rescind 1013 and continue Zoloft 50 mg PO daily for depression/anxiety, Abilify 5 mg PO daily for mood/psychosis, and Buspar 7.5 mg PO BID for anxiety. Discussed possible suicidality/medication induced eugenio with the patient reference Zoloft, she verbalized understanding. Discussed possible metabolic side effects of Abilify with the patient, she verbalized understanding. Safety contract completed with the patient. Dispo: The patient can follow up at [facility] for outpatient psy services. Will staff with Dr Deborah Weber.
== END 2019-01-27 13:09 | disposition home or self-care (01) ==
LOC: EEVIPCON 14:29 → ED 14:29
DX: T43.212A Poisoning by selective serotonin and norepinephrine reuptake inhibitors, intentional self-harm, initial encounter (principal); I10 Essential (primary) hypertension; F41.9 Anxiety disorder, unspecified; F32.9 Major depressive disorder, single episode, unspecified; F20.9 Schizophrenia, unspecified; F17.200 Nicotine dependence, unspecified, uncomplicated; F12.10 Cannabis abuse, uncomplicated; Y92.89 Other specified places as the place of occurrence of the external cause
CPT/HCPCS: 36415; 80048; 80061; 80076; 80307; 81001; 81025; 83036; 85025; 93005; 93010; 96360; 96372; 99285; J1630; J2060; J3486; J7030; 80320; G0480; Q0177

== ENCOUNTER 2019-04-05 19:34 | Emergency (ER) | payer SELFPAY ==
[2019-04-05] MEDS ORDERED: HALOPERIDOL LACTATE 5 MG/1 ML INJ IM PRN (19:44)
--- NOTE | 2019-04-05 19:48 | Emergency Department Report ---
ED General Adult HPI - General Chief complaint: Medical Clearance Stated complaint: SUICIDAL IDEATIONS Time Seen by Provider: 04/05/19 19:37 Source: patient, EMS (verbal report received from emergency medical services. EMS documentation not available at time of chart dictation ), RN notes reviewed, old records reviewed Mode of arrival: Stretcher Limitations: No Limitations - History of Present Illness Initial comments: The patient is a 23-year-old female. The patient has a history of obesity and schizophrenia. The patient is brought to the hospital by emergency medical services. Apparently, she made overdosed on some Risperdal earlier on today. She cannot give an exact pill number. Ingestion may have taken place at or around 6:30 PM today. She denies physical pain at this time. She states that she wants to go to sleep. Apparently, patient has been seen in this department in the past for overdose. She was seen by psychiatry in the past. Apparently a family member contacted emergency medical services. -: This afternoon Improves with: none Worsens with: none Associated Symptoms: denies other symptoms - Related Data Home Medications Medication Instructions Recorded Confirmed Last Taken ALBUTEROL Inhaler (OR & NICU) 2 puff IH QID PRN 01/21/19 01/21/19 Unknown [Proair] QUEtiapine [SEROquel] 300 mg PO QHS 01/21/19 01/22/19 Unknown Sertraline [Zoloft] 50 mg PO QAM 01/21/19 01/22/19 Unknown hydrOXYzine PAMOATE [Vistaril] 50 mg PO BID 01/21/19 01/22/19 Unknown Allergies Allergy/AdvReac Type Severity Reaction Status Date / Time Johnson Allergy Anaphylaxis Verified 01/21/19 14:34 raspberry Allergy Anaphylaxis Verified 01/21/19 14:34 tomato Allergy Anaphylaxis Verified 01/21/19 14:34 ED Review of Systems ROS: Stated complaint: SUICIDAL IDEATIONS Other details as noted in HPI Constitutional: denies: fever Eyes: denies: eye discharge ENT: denies: congestion Respiratory: denies: wheezing Cardiovascular: denies: syncope Gastrointestinal: denies: abdominal pain Genitourinary: as per HPI Musculoskeletal: as per HPI Skin: as per HPI Neurological: as per HPI Psychiatric: as per HPI. denies: homicidal thoughts, suicidal thoughts ED Past Medical Hx - Past Medical History Hx Hypertension: Yes (Intracranial Hypertension) Hx Psychiatric Treatment: Yes (Anxiety, depression, schizoaffective,) Hx Asthma: Yes - Surgical History Additional Surgical History: tonsils/adnoids removed, cyst removed - Social History Smoking Status: Current Every Day Smoker Substance Use Type: Alcohol, Marijuana - Medications Home Medications: Home Medications Medication Instructions Recorded Confirmed Last Taken Type ALBUTEROL Inhaler (OR & NICU) 2 puff IH QID PRN 01/21/19 01/21/19 Unknown History [Proair] QUEtiapine [SEROquel] 300 mg PO QHS 01/21/19 01/22/19 Unknown History Sertraline [Zoloft] 50 mg PO QAM 01/21/19 01/22/19 Unknown History hydrOXYzine PAMOATE [Vistaril] 50 mg PO BID 01/21/19 01/22/19 Unknown History ED Physical Exam - General General appearance: alert, in no apparent distress, obese - Head Head exam: Present: atraumatic, normocephalic - Eye Eye exam: Present: normal appearance, EOMI. Absent: nystagmus - ENT ENT exam: Present: normal exam, normal orophraynx, mucous membranes moist, normal external ear exam - Neck Neck exam: Present: normal inspection, full ROM. Absent: tenderness, meningismus - Respiratory Respiratory exam: Present: normal lung sounds bilaterally. Absent: respiratory distress, wheezes, rales, rhonchi, stridor - Cardiovascular Cardiovascular Exam: Present: regular rate, normal rhythm, normal heart sounds. Absent: bradycardia, tachycardia, irregular rhythm, systolic murmur, diastolic murmur, rubs, gallop - GI/Abdominal GI/Abdominal exam: Present: soft. Absent: distended, tenderness, guarding, rebound, rigid, pulsatile mass - Extremities Exam Extremities exam: Present: normal inspection, full ROM, other (there is no f acial droop. The tongue is midline. Extraocular movements are intact bilaterally. There is 5 out of 5 strength in bilateral upper and lower extremities. Sensation is intact to light touch bilateral upper and lower extremities. There is no past-pointing. There is no pronator drift. There is normal [id number]. There is a normal gait.). Absent: pedal edema, joint swelling, calf tenderness - Back Exam Back exam: Present: normal inspection, full ROM. Absent: tenderness, CVA tenderness (R), CVA tenderness (L), paraspinal tenderness, vertebral tenderness - Neurological Exam Neurological exam: Present: alert, other (there is no facial droop. The tongue is midline. The extraocular movements are intact bilaterally. Speaking in full sentences. Minimal elevation of the base of the tongue. There is 5 out of 5 strength in the bilateral upper and lower extremities, and sensation is intact to light touch in the bilateral upper and lower extremities. Appropriate insight.). Absent: motor sensory deficit - Psychiatric Psychiatric exam: Present: flat affect - Skin Skin exam: Present: warm, dry, intact, normal color. Absent: rash ED Course Vital Signs 04/05/19 04/05/19 04/05/19 19:45 19:58 20:00 Temperature 97.4 F L Pulse Rate 122 H 109 H Respiratory 18 20 18 Rate Blood Pressure 121/47 116/54 Blood Pressure 138/58 [Right] O2 Sat by Pulse 96 100 Oximetry 04/05/19 04/05/19 04/05/19 20:15 20:30 20:45 Temperature Pulse Rate 101 H 97 H 96 H Respiratory 16 15 16 Rate Blood Pressure 121/70 135/78 135/65 Blood Pressure [Right] O2 Sat by Pulse 88 91 97 Oximetry 04/05/19 04/05/19 04/05/19 21:00 21:15 21:30 Temperature Pulse Rate 93 H 92 H 93 H Respiratory 14 15 16 Rate Blood Pressure 135/65 158/122 Blood Pressure [Right] O2 Sat by Pulse 99 100 100 Oximetry 04/05/19 04/05/19 04/05/19 21:46 22:00 22:16 Temperature Pulse Rate 111 H 92 H 114 H Respiratory 16 18 Rate Blood Pressure 158/122 158/122 158/122 Blood Pressure [Right] O2 Sat by Pulse 100 100 96 Oximetry 04/05/19 04/05/19 04/05/19 22:30 22:45 23:00 Temperature Pulse Rate 106 H 102 H 95 H Respiratory 14 13 22 Rate Blood Pressure 119/57 135/54 135/54 Blood Pressure [Right] O2 Sat by Pulse 95 92 96 Oximetry 04/05/19 04/05/19 04/05/19 23:16 23:30 23:46 Temperature Pulse Rate 93 H 92 H 93 H Respiratory 15 16 16 Rate Blood Pressure 120/63 127/64 135/60 Blood Pressure [Right] O2 Sat by Pulse 97 97 98 Oximetry 04/06/19 04/06/19 04/06/19 00:00 00:16 00:30 Temperature Pulse Rate 102 H 99 H 96 H Respiratory 16 15 15 Rate Blood Pressure 135/60 115/55 115/55 Blood Pressure [Right] O2 Sat by Pulse 95 94 96 Oximetry 04/06/19 04/06/19 04/06/19 00:46 01:00 01:16 Temperature Pulse Rate 94 H 95 H 91 H Respiratory 21 13 13 Rate Blood Pressure 118/63 139/115 150/65 Blood Pressure [Right] O2 Sat by Pulse 99 97 91 Oximetry 04/06/19 04/06/19 04/06/19 01:30 01:46 02:00 Temperature Pulse Rate 89 91 H 91 H Respiratory 13 13 14 Rate Blood Pressure 150/69 165/75 165/75 Blood Pressure [Right] O2 Sat by Pulse 97 99 98 Oximetry 04/06/19 04/06/19 04/06/19 02:16 02:30 02:46 Temperature Pulse Rate 94 H 91 H 90 Respiratory 12 13 15 Rate Blood Pressure 144/101 144/101 148/80 Blood Pressure [Right] O2 Sat by Pulse 97 96 100 Oximetry 04/06/19 04/06/19 04/06/19 03:00 03:30 04:00 Temperature Pulse Rate 89 89 87 Respiratory 18 18 16 Rate Blood Pressure 165/79 165/79 165/79 Blood Pressure [Right] O2 Sat by Pulse 99 96 96 Oximetry 04/06/19 04/06/19 04/06/19 04:30 05:00 05:30 Temperature Pulse Rate Respiratory Rate Blood Pressure 136/70 122/48 103/48 Blood Pressure [Right] O2 Sat by Pulse 98 100 97 Oximetry 04/06/19 04/06/19 04/06/19 06:00 07:38 08:00 Temperature 97.5 F L Pulse Rate 101 H 90 Respiratory 19 11 L Rate Blood Pressure 99/46 115/93 Blood Pressure 111/46 [Right] O2 Sat by Pulse 100 100 100 Oximetry 04/06/19 04/06/19 04/06/19 08:30 10:44 11:00 Temperature Pulse Rate 95 H 124 H 96 H Respiratory 21 22 26 H Rate Blood Pressure 101/63 131/108 133/70 Blood Pressure [Right] O2 Sat by Pulse 98 95 Oximetry 04/06/19 04/06/19 04/06/19 11:30 12:00 12:30 Temperature Pulse Rate 96 H Respiratory 14 19 Rate Blood Pressure 112/62 121/65 109/57 Blood Pressure [Right] O2 Sat by Pulse 98 100 100 Oximetry 04/07/19 04/07/19 02:05 14:44 Temperature 98.2 F 98 F Pulse Rate 80 92 H Respiratory 16 18 Rate Blood Pressure Blood Pressure 95/56 109/55 [Right] O2 Sat by Pulse 100 100 Oximetry - Reevaluation(s) Reevaluation #1: 04/05/19 22:54 Differential diagnosis, including but not limited to: Overdose, medical clearance for psychiatric placement Assessment and plan: 23-year-old female who presents with overdose of uncertain intent of Risperdal. The patient is currently afebrile with reassuring vital signs. She is protecting her airway at this time. Her physical examination is unremarkable. Screening laboratory studies are reviewed and appreciated. Contacted [facility] and discussed with Pineda. Recommend supportive care, serial EKGs. Recommend potassium 4 or greater, magnesium 2 or greater. Patient currently resting comfortably in stretcher, and in no acute distress. Patient placed on ER hold. Psychiatric consultation will be requested. [facility] advises against as needed antipsychotics, recommends benzodiazepines if needed for sedation and/or agitation. Reevaluation #2: 04/06/19 02:58 Observed 4 hours without clinical decompensation. Somewhat sleepy. It is now 3:00 in the morning. No adverse events noted on change number operator. care will be transferred to the overnight physician, Dr. Alonzo Camargo to continue observation, and the transfer care to the morning physician to coordinate with psychiatry team to arrange appropriate disposition at this point in time, patient does not appear to have an immediate medical contraindication to psychiatric admission, evaluation, and hospitalization. By the same token, if psychiatry feels that patient does not meet 1013 criteria for involuntary hold criteria, would consider it appropriate to discharge patient. ED Medical Decision Making - Lab Data Result diagrams: 04/05/19 19:59 04/05/19 19:59 Vital Signs 04/05/19 04/05/19 04/05/19 19:45 19:58 20:00 Temperature 97.4 F L Pulse Rate 122 H 109 H Respiratory 18 20 18 Rate Blood Pressure 121/47 116/54 Blood Pressure 138/58 [Right] O2 Sat by Pulse 96 100 Oximetry 04/05/19 04/05/19 04/05/19 20:15 20:30 20:45 Temperature Pulse Rate 101 H 97 H 96 H Respiratory 16 15 16 Rate Blood Pressure 121/70 135/78 135/65 Blood Pressure [Right] O2 Sat by Pulse 88 91 97 Oximetry 04/05/19 04/05/19 04/05/19 21:00 21:15 21:30 Temperature Pulse Rate 93 H 92 H 93 H Respiratory 14 15 16 Rate Blood Pressure 135/65 158/122 Blood Pressure [Right] O2 Sat by Pulse 99 100 100 Oximetry 04/05/19 04/05/19 04/05/19 21:46 22:00 22:16 Temperature Pulse Rate 111 H 92 H 114 H Respiratory 16 18 Rate Blood Pressure 158/122 158/122 158/122 Blood Pressure [Right] O2 Sat by Pulse 100 100 96 Oximetry 04/05/19 22:30 Temperature Pulse Rate 106 H Respiratory 14 Rate Blood Pressure 119/57 Blood Pressure [Right] O2 Sat by Pulse 95 Oximetry Lab Results 04/05/19 04/05/19 04/05/19 Range/Units 19:59 19:59 19:59 WBC 8.1 (4.5-11.0) K/mm3 RBC 4.42 (3.65-5.03) M/mm3 Hgb 12.7 (10.1-14.3) gm/dl Hct 38.1 (30.3-42.9) % MCV 86 (79-97) fl MCH 29 (28-32) pg MCHC 33 (30-34) % RDW 15.1 (13.2-15.2) % Plt Count 310 (140-440) K/mm3 Sodium 138 (137-145) mmol/L Potassium 3.5 L (3.6-5.0) mmol/L Chloride 104.3 (98-107) mmol/L Carbon Dioxide 18 L (22-30) mmol/L Anion Gap 19 mmol/L BUN 8 (7-17) mg/dL Creatinine 0.8 (0.7-1.2) mg/dL Estimated GFR > 60 ml/min BUN/Creatinine Ratio 10 % Glucose 114 H (65-100) mg/dL Calcium 9.1 (8.4-10.2) mg/dL Magnesium 1.90 (1.7-2.3) mg/dL Total Bilirubin 0.30 (0.1-1.2) mg/dL AST 17 (5-40) units/L ALT 12 (7-56) units/L Alkaline Phosphatase 76 (35-129) units/L Total Creatine Kinase 165 H (30-135) units/L Total Protein 7.6 (6.3-8.2) g/dL Albumin 3.8 L (3.9-5) g/dL Albumin/Globulin Ratio 1.0 % HCG, Quant (0-4) mIU/mL Urine Color (Yellow) Urine Turbidity (Clear) Urine pH (5.0-7.0) Ur Specific [place] (1.003-1.030) Urine Protein (Negative) mg/dL Urine Glucose (UA) (Negative) mg/dL Urine Ketones (Negative) mg/dL Urine Blood (Negative) Urine Nitrite (Negative) Urine Bilirubin (Negative) Urine Urobilinogen (<2.0) mg/dL Ur Leukocyte Esterase (Negative) Urine WBC (Auto) (0.0-6.0) /HPF Urine RBC (Auto) (0.0-6.0) /HPF U Epithel Cells (Auto) (0-13.0) /HPF Urine Bacteria (Auto) (Negative) /HPF Hyaline Casts /LPF Urine Mucus /HPF Salicylates (2.8-20.0) mg/dL Urine Opiates Screen Urine Methadone Screen Acetaminophen (10.0-30.0) ug/mL Ur Barbiturates Screen Ur Phencyclidine Scrn Ur Amphetamines Screen U Benzodiazepines Scrn Urine Cocaine Screen U Marijuana (THC) Screen Drugs of Abuse Note Plasma/Serum Alcohol (0-0.07) % 04/05/19 04/05/19 04/05/19 Range/Units 19:59 19:59 19:59 WBC (4.5-11.0) K/mm3 RBC (3.65-5.03) M/mm3 Hgb (10.1-14.3) gm/dl Hct (30.3-42.9) % MCV (79-97) fl MCH (28-32) pg MCHC (30-34) % RDW (13.2-15.2) % Plt Count (140-440) K/mm3 Sodium (137-145) mmol/L Potassium (3.6-5.0) mmol/L Chloride (98-107) mmol/L Carbon Dioxide (22-30) mmol/L Anion Gap mmol/L BUN (7-17) mg/dL Creatinine (0.7-1.2) mg/dL Estimated GFR ml/min BUN/Creatinine Ratio % Glucose (65-100) mg/dL Calcium (8.4-10.2) mg/dL Magnesium (1.7-2.3) mg/dL Total Bilirubin (0.1-1.2) mg/dL AST (5-40) units/L ALT (7-56) units/L Alkaline Phosphatase (35-129) units/L Total Creatine Kinase (30-135) units/L Total Protein (6.3-8.2) g/dL Albumin (3.9-5) g/dL Albumin/Globulin Ratio % HCG, Quant < 2 (0-4) mIU/mL Urine Color (Yellow) Urine Turbidity (Clear) Urine pH (5.0-7.0) Ur Specific [place] (1.003-1.030) Urine Protein (Negative) mg/dL Urine Glucose (UA) (Negative) mg/dL Urine Ketones (Negative) mg/dL Urine Blood (Negative) Urine Nitrite (Negative) Urine Bilirubin (Negative) Urine Urobilinogen (<2.0) mg/dL Ur Leukocyte Esterase (Negative) Urine WBC (Auto) (0.0-6.0) /HPF Urine RBC (Auto) (0.0-6.0) /HPF U Epithel Cells (Auto) (0-13.0) /HPF Urine Bacteria (Auto) (Negative) /HPF Hyaline Casts /LPF Urine Mucus /HPF Salicylates < 0.3 L (2.8-20.0) mg/dL Urine Opiates Screen Urine Methadone Screen Acetaminophen < 5.0 L (10.0-30.0) ug/mL Ur Barbiturates Screen Ur Phencyclidine Scrn Ur Amphetamines Screen U Benzodiazepines Scrn Urine Cocaine Screen U Marijuana (THC) Screen Drugs of Abuse Note Plasma/Serum Alcohol (0-0.07) % 04/05/19 04/05/19 04/05/19 Range/Units 19:59 21:20 21:20 WBC (4.5-11.0) K/mm3 RBC (3.65-5.03) M/mm3 Hgb (10.1-14.3) gm/dl Hct (30.3-42.9) % MCV (79-97) fl MCH (28-32) pg MCHC (30-34) % RDW (13.2-15.2) % Plt Count (140-440) K/mm3 Sodium (137-145) mmol/L Potassium (3.6-5.0) mmol/L Chloride (98-107) mmol/L Carbon Dioxide (22-30) mmol/L Anion Gap mmol/L BUN (7-17) mg/dL Creatinine (0.7-1.2) mg/dL Estimated GFR ml/min BUN/Creatinine Ratio % Glucose (65-100) mg/dL Calcium (8.4-10.2) mg/dL Magnesium (1.7-2.3) mg/dL Total Bilirubin (0.1-1.2) mg/dL AST (5-40) units/L ALT (7-56) units/L Alkaline Phosphatase (35-129) units/L Total Creatine Kinase (30-135) units/L Total Protein (6.3-8.2) g/dL Albumin (3.9-5) g/dL Albumin/Globulin Ratio % HCG, Quant (0-4) mIU/mL Urine Color Yellow (Yellow) Urine Turbidity Slightly-cloudy (Clear) Urine pH 5.0 (5.0-7.0) Ur Specific [place] 1.020 (1.003-1.030) Urine Protein 100 mg/dl (Negative) mg/dL Urine Glucose (UA) Neg (Negative) mg/dL Urine Ketones Neg (Negative) mg/dL Urine Blood Neg (Negative) Urine Nitrite Pos (Negative) Urine Bilirubin Neg (Negative) Urine Urobilinogen < 2.0 (<2.0) mg/dL Ur Leukocyte Esterase Sm (Negative) Urine WBC (Auto) 7.0 H (0.0-6.0) /HPF Urine RBC (Auto) 4.0 (0.0-6.0) /HPF U Epithel Cells (Auto) 1.0 (0-13.0) /HPF Urine Bacteria (Auto) 2+ (Negative) /HPF Hyaline Casts 1 /LPF Urine Mucus 2+ /HPF Salicylates (2.8-20.0) mg/dL Urine Opiates Screen Presumptive negative Urine Methadone Screen Presumptive positive Acetaminophen (10.0-30.0) ug/mL Ur Barbiturates Screen Presumptive negative Ur Phencyclidine Scrn Presumptive negative Ur Amphetamines Screen Presumptive negative U Benzodiazepines Scrn Presumptive negative Urine Cocaine Screen Presumptive positive U Marijuana (THC) Screen Presumptive positive Drugs of Abuse Note Disclamer Plasma/Serum Alcohol < 0.01 (0-0.07) % - EKG Data -: EKG Interpreted by Me EKG shows normal: sinus rhythm Rate: normal - EKG Data 04/05/19 22:56 EKG #1 shows a sinus tachycardia, 108 bpm, normal axis, QTC 451 ms, QRS 88 ms, HI interval 130 ms, there is borderline high left ventricular voltage, Q waves noted in the inferior leads, the EKG is not consistent with ST elevation myocardial infarction. EKG 2 shows sinus, 97 bpm, normal axis, QTC 484 ms, QRS 86 ms, HI interval 133 ms. Not consistent with stemi - Medical Decision Making Differential diagnosis, including but not limited to: Overdose, psychosis, schizophrenia, medical clearance for psychiatric placement Assessment and plan: 23-year-old female status post overdose of uncertain intent. The patient is afebrile with reassuring vital signs. Her physical ex amination is unremarkable. Screening laboratory studies are reviewed and appreciated. Urinalysis is reviewed and appreciated. Potassium and magnesium supplementation have been administered. Macrobid antibiotics started empirically. Psychiatric consultation requested, patient placed on ER hold. Patient has been in this ER for hours without clinical decompensation. We will continue to observe the patient. Critical care attestation.: If time is entered above; I have spent that time in minutes in the direct care of this critically ill patient, excluding procedure time. ED Disposition Clinical Impression: Overdose, History of schizophrenia Disposition: DC-01 TO HOME OR SELFCARE Is pt being admited?: No Does the pt Need Aspirin: No Condition: Stable Instructions: Schizophrenia (ED), Suicide Prevention for Adults (ED) Additional Instructions: Take medications only as prescribed. Return to the emergency department with any worsening of your symptoms, thoughts of harming herself or others, or with any acute distress. Follow-up with the [facility] or any other outpatient referrals given to by the psychiatric team. Referrals: [facility] [Outside] - [facility] [Outside] - 3-5 Days
[2019-04-05] MEDS: LORazepam 2 MG/ML VIAL IM PRN (20:03)
[2019-04-05 20:25] LABS: Hematocrit 38.1 % (30.3-42.9); Hemoglobin 12.7 gm/dl (10.1-14.3); Mean Corpuscular HGB Conc 33 % (30-34); Mean Corpuscular Volume 86 fl (79-97); Platelet Count 310 K/mm3 (140-440); Red Blood Count 4.42 M/mm3 (3.65-5.03); Red Cell Distribution Width 15.1 % (13.2-15.2)
[2019-04-05 20:48] LABS: Alanine Aminotransferase 12 units/L (7-56); Albumin 3.8 g/dL (3.9-5); BUN/Creatinine Ratio 10; Blood Urea Nitrogen 8 mg/dL (7-17); Calcium 9.1 mg/dL (8.4-10.2); Hemolysis Index 9
[2019-04-05] MEDS ORDERED: POTASSIUM CHLORIDE ER 20 MEQ TAB PO ONE (21:20)
[2019-04-05] MEDS ORDERED: MAGNESIUM SULFATE 2 GM/50 ML BAG IV ONE (21:20)
[2019-04-05] MEDS ORDERED: MAGNESIUM OXIDE 400 MG TAB PO ONE (22:15)
[2019-04-05 22:34] LABS: Amphetamine Screen,Urine PRESUMPTIVE NEGATIVE; Benzodiazepines Screen,Urine PRESUMPTIVE NEGATIVE; Opiate Screen,Urine PRESUMPTIVE NEGATIVE
[2019-04-05 22:37] LABS: Bacteria,Urine 2+ /HPF (Negative); Bilirubin,Urine NEG (Negative); Blood,Urine NEG (Negative); Color,Urine Yellow (Yellow); Hyaline Casts,Urine 1 /LPF; Mucus,Urine 2+ /HPF; Urobilinogen,Urine < 2.0 mg/dL (<2.0)
[2019-04-05] MEDS: POTASSIUM CHLORIDE 10 MEQ 10 MEQ/100 ML BAG IV SCH (22:48)
[2019-04-05 22:50] LABS: Cannabinoid Screen,Urine PRESUMPTIVE POSITIVE; Cocaine Screen,Urine PRESUMPTIVE POSITIVE; Methadone Screen,Urine PRESUMPTIVE POSITIVE
[2019-04-06] MEDS: POTASSIUM CHLORIDE 10 MEQ 10 MEQ/100 ML BAG IV SCH ×3 (00:27→02:51)
[2019-04-06] MEDS: NITROFURANTOIN MONOHYD/M-CRYST 100 MG CAP PO SCH ×3 (06:38→22:24)
[2019-04-06] MEDS: LORazepam 2 MG/ML VIAL IM PRN (06:50)
[2019-04-07] MEDS: NITROFURANTOIN MONOHYD/M-CRYST 100 MG CAP PO SCH (11:34)
--- NOTE | 2019-04-07 11:53 | Consultation ---
History of Present Illness - Reason for Consult Consult date: 04/07/19 Reason for consult: Suicidal Ideations - Chief Complaint Chief complaint: The patient states she came in after her mom called 911 because she had taken extra pills - History of Present Psychiatric Illness Ms. Li is a 23 y/o black female who has a stated history of schizophrenia. She says her mom called 911 after she "took some extra pills to get some extra rest." She denies SI/HI, says "I wasn't suicidal then, my mom just thought that." Ms. Leger says "I was just so tired and was trying to rest so I could get a job this week." She denies hallucinations of any kind and says her mood is "good." Ms. Frye says she has no fear or reservations about going home to her parents home. She states, I feel "I really feel fine." PAST PSYCHIATRIC HISTORY: Diagnoses: Schizophrenia, Anxiety, depression, schizoaffective Suicide attempts or Self-harm behavior: denies Prior psychiatric hospitalizations: "once before" Substance Abuse history: Cocaine, THC Previous psychiatric medications tried: Seroqel, restoril, zoloft, trazodone Outpatient treatment: yes PAST MEDICAL HISTORY: HTN Family Psychiatric History None reported or documented SOCIAL HISTORY Marital Status: Single Living Arrangements: Parents Employment Status: Unemployed Access to guns/weapons: Denies Education: 2 semesters of college History of Abuse: Denies Legal History: Denies REVIEW OF SYSTEMS Constitutional: Negative for weight loss ENT: Negative for stridor Respiratory: Negative for cough or hemoptysis All other systems reviewed and are negative MSE Appearance: In bed. Covered with blanket Behavior: Pleasant and cooperative, calm. Mood: "fine" Affect: Congruent with stated mood Thought Process: Goal directed Speech: Normal rate. Thought Content Harmfulness Denies SI/HI Hallucinations: patient denies Delusions: none elicited Consciousness: alert. Cognition/Memory: Good Insight/Judgment: Limited. Diagnoses: Schizophrenia Treatment Plan DISPOSITION: no indication for acute inpatient psychiatric hospitalization at this time The patient understands to call 911 or SUICIDE hotline if becomes suicidal. Pt has persistently denies SI/HI or any passive thoughts about LEGAL STATUS: Voluntary Can discharge home once medically cleared Resume home medications Follow up with outpatient in 7 to 10 Medications and Allergies Allergies Allergy/AdvReac Type Severity Reaction Status Date / Time Johnson Allergy Anaphylaxis Verified 01/21/19 14:34 raspberry Allergy Anaphylaxis Verified 01/21/19 14:34 tomato Allergy Anaphylaxis Verified 01/21/19 14:34 Home Medications Medication Instructions Recorded Confirmed Last Taken Type ALBUTEROL Inhaler (OR & NICU) 2 puff IH QID PRN 01/21/19 01/21/19 Unknown History [Proair] QUEtiapine [SEROquel] 300 mg PO QHS 01/21/19 01/22/19 Unknown History Sertraline [Zoloft] 50 mg PO QAM 01/21/19 01/22/19 Unknown History hydrOXYzine PAMOATE [Vistaril] 50 mg PO BID 01/21/19 01/22/19 Unknown History Active Meds: Active Medications Lorazepam (Ativan) 2 mg IM Q4HR PRN PRN Reason: Agitation Last Admin: 04/06/19 06:50 Dose: 2 mg Documented by: Nitrofurantoin Macrocrystals (Macrobid) 100 mg PO BID KRISTA Stop: 04/12/19 10:01 Last Admin: 04/07/19 11:34 Dose: 100 mg Documented by: Mental Status Exam - Vital signs Last Vital Signs Temp 98.2 F 04/07/19 02:05 Pulse 80 04/07/19 02:05 Resp 16 04/07/19 02:05 BP 95/56 04/07/19 02:05 Pulse Ox 100 04/07/19 02:05 Results Result Diagrams: 04/05/19 19:59 04/05/19 19:59 All other labs normal.
[2019-04-07 14:45] VITALS: BP 109/55
[2019-04-08] MEDS ORDERED: traZODone 50 MG TAB PO SCH (10:00)
== END 2019-04-07 14:48 | disposition home or self-care (01) ==
LOC: EEVIPCON 19:34 → ED 19:34
DX: T43.591A Poisoning by other antipsychotics and neuroleptics, accidental (unintentional), initial encounter (principal); F41.9 Anxiety disorder, unspecified; F31.9 Bipolar disorder, unspecified; J45.909 Unspecified asthma, uncomplicated; F17.200 Nicotine dependence, unspecified, uncomplicated; F12.10 Cannabis abuse, uncomplicated; Z91.018 Allergy to other foods; Y92.89 Other specified places as the place of occurrence of the external cause
CPT/HCPCS: 36415; 80053; 80307; 81001; 82550; 83735; 84702; 85027; 93005; 93010; J1630; J2060; J3475; J3480; 80320; 96365; 96372; 99285; G0480

== ENCOUNTER 2020-03-16 12:34 | Emergency (ER) | payer SELFPAY ==
[2020-03-16 13:22] VITALS: BP 123/63
== END 2020-03-16 13:23 | disposition left against medical advice (07) ==
LOC: ED 12:34
DX: R42 Dizziness and giddiness (principal); Z53.21 Procedure and treatment not carried out due to patient leaving prior to being seen by health care provider

== ENCOUNTER 2020-03-26 18:53 | Emergency (ER) | payer SELFPAY | END 2020-03-26 19:10 | disposition left against medical advice (07) | LOC: ED 18:53 | DX: R46.2 Strange and inexplicable behavior (principal); Z53.21 Procedure and treatment not carried out due to patient leaving prior to being seen by health care provider ==

== ENCOUNTER 2020-08-31 11:04 | Emergency (ER) | payer SELFPAY ==
[2020-08-31 11:36] VITALS: BP 141/62
--- NOTE | 2020-08-31 11:37 | Emergency Department Report ---
Stated Complaint: TEST Time Seen by Provider: 08/31/20 11:34 - HPI History of Present Illness: Patient is a 24-year-old female presents emergency room with complaints of "wanting a test." Patient states that her last menstrual cycle was at the end of June. She states that she has taken a few tests [id number] and several are negative but one came back positive. She has not followed up with her primary care doctor or [facility]. She states her only symptom is nausea. She denies any fever, vomiting, diarrhea, abdominal pain, vaginal bleeding, urinary symptoms, pelvic pain, back pain. Patient denies any past medical history. She denies any allergies to medications. Vitals are stable On exam: Non toxic appearing, no acute distress atraumatic, normocephalic normal appearance of the eyes, EOMI, no periorbital edema or ecchymosis moist mucus membranes No respiratory distress, no accessory muscle use Protuberant abdomen, abdomen is soft, nontender, no rigidity, no peritoneal signs, no guarding, no rebound tenderness A&O x4, no focal neuro deficit skin is warm, dry, intact Patient is requesting test She denies any abdominal pain or vaginal bleeding Patient given the appropriate resources Discussed strict return precautions Medical screening examination performed there is no bite to life or limb at this time MSE screening note: Focused history and physical exam performed. ED Disposition for MSE Clinical Impression: Nausea, Missed menses Disposition: MED SCREENING EXAM-LEFT Is pt being admited?: No Does the pt Need Aspirin: No Condition: Stable Additional Instructions: Please follow-up with the clinic or [facility]. Return to emergency room immediately if you begin experiencing any abdominal pain or vaginal bleeding. Care Center Address: [address] [place] [address] Resource Center [facility] Address: [address] [place] [address] [facility] Address: [address] [place] [address] Referrals: [facility] [Provider Group] - 2-3 Days DHIRAJ ROBERT MD [Staff Physician] - 2-3 Days Time of Disposition: 11:34 Print Language: GUYANESE
== END 2020-08-31 11:50 | disposition left against medical advice (07) ==
LOC: ED 11:04
DX: R11.0 Nausea (principal); Z53.21 Procedure and treatment not carried out due to patient leaving prior to being seen by health care provider

== ENCOUNTER 2021-10-28 20:01 | Emergency (ER) | payer SELFPAY ==
[2021-10-28 20:48] VITALS: BP 111/76
--- NOTE | 2021-10-28 21:06 | Emergency Department Report ---
Minor Respiratory - HPI Chief Complaint: Earache Stated Complaint: CAN'T HEAR/PAIN IN HEAR Time Seen by Provider: 10/28/21 21:05 Duration: 3 Days Pain Location: Ear Severity: moderate Minor Respiratory: Yes Able to Tolerate Fluids, Yes Ear Pain, No Rhinorrhea, No Sore Throat, No Cough, No Sick Contacts, No Hemoptysis, No Chest Pain, No Shortness of Breath, No Fever Other History: 25 yo comes to er with left ear pain x 3 days. no fever or chills. ED Review of Systems ROS: Stated complaint: CAN'T HEAR/PAIN IN HEAR Other details as noted in HPI Comment: All other systems reviewed and negative ED Past Medical Hx - Past Medical History Previous Medical History?: Yes Hx Hypertension: (Intracranial Hypertension) Hx Psychiatric Treatment: Yes (Anxiety, depression, schizoaffective,) Hx Asthma: Yes - Surgical History Past Surgical History?: Yes Additional Surgical History: tonsils/adnoids removed, cyst removed - Family History Family history: no significant - Social History Smoking Status: Current Every Day Smoker Substance Use Type: Alcohol, Marijuana - Medications Home Medications: Home Medications Medication Instructions Recorded Confirmed Last Taken Type Albuterol Mdi (or & Nicu Only) 2 puff IH QID PRN 01/21/19 01/21/19 Unknown History [Proair] QUEtiapine [SEROquel] 300 mg PO QHS 01/21/19 01/22/19 Unknown History Sertraline [Zoloft] 50 mg PO QAM 01/21/19 01/22/19 Unknown History hydrOXYzine PAMOATE [Vistaril] 50 mg PO BID 01/21/19 01/22/19 Unknown History Amoxicillin [Trimox CAP] 500 mg PO BID #20 capsule 10/28/21 Unknown Rx Ibuprofen [Motrin] 800 mg PO Q8HR PRN #30 tablet 10/28/21 Unknown Rx Minor Respiratory Exam - Exam General: Vital signs noted. No distress. Alert and acting appropriately. HEENT: Yes Moist Mucous Membranes, No Pharyngeal Erythema, No Pharyngeal Exudates, No Rhinorrhea, No Conjuctival Injection, No Frontal Tenderness, No Maxillary Tenderness Ear: Left TM Bulge, Left TM Erythema, Left EAC Pain, Neither EAC Discharge Neck: Yes Supple, No Adenopathy Lungs: Yes Good Air Exchange, No Wheezes, No Ronchi, No Stridor, No Cough, No Labored Respirations, No Retractions, No Use of Accessory Muscles, No Other Abnormal Lung Sounds Heart: Yes Regular, No Murmur Abdomen: Yes Normal Bowel Sounds, No Tenderness, No Peritoneal Signs Skin: No Rash, No Edema Neurologic: Alert and oriented, no deficits. Musculoskeletal: Unremarkable. ED Course Vital Signs 10/28/21 20:08 Temperature 98.1 F Pulse Rate 77 Respiratory 18 Rate Blood Pressure 111/76 O2 Sat by Pulse 97 Oximetry ED Medical Decision Making - Medical Decision Making Vital Signs 10/28/21 20:08 Temperature 98.1 F Pulse Rate 77 Respiratory 18 Rate Blood Pressure 111/76 O2 Sat by Pulse 97 Oximetry no fb left tm red/serous effusion medicated with motrin and amox dc home with dc plan of care including diet, meds, activity and follow up. verbalizes understanding of dc plan of care. - Differential Diagnosis om/oe/fb Critical care attestation.: If time is entered above; I have spent that time in minutes in the direct care of this critically ill patient, excluding procedure time. ED Disposition Clinical Impression: Otitis media Qualifiers: Otitis media type: unspecified Chronicity: acute Qualified Code(s): H66.90 - Otitis media, unspecified, unspecified ear Disposition: 01 HOME / SELF CARE / HOMELESS Is pt being admited?: No Does the pt Need Aspirin: No Condition: Stable Instructions: Otitis Media, Adult, [id number] Additional Instructions: meds as ordered today until gone then follow up with pcp to make sure this has gone away referral below Prescriptions: Ibuprofen [Motrin] 800 mg PO Q8HR PRN #30 tablet PRN Reason: Pain, Moderate (4-6) Amoxicillin [Trimox CAP] 500 mg PO BID #20 capsule Referrals: JUAN CARLOS OLSEN MD [Staff Physician] - 3-5 Days Forms: Work/School Release Form(ED) Time of Disposition: 21:08
[2021-10-28] MEDS: IBUPROFEN 800 MG TAB PO ONE (22:18)
[2021-10-28] MEDS: AMOXICILLIN 500 MG CAP PO ONE (22:19)
== END 2021-10-28 22:30 | disposition home or self-care (01) ==
LOC: ED 20:01
DX: H66.90 Otitis media, unspecified, unspecified ear (principal); I10 Essential (primary) hypertension; J45.909 Unspecified asthma, uncomplicated; F41.9 Anxiety disorder, unspecified; F17.200 Nicotine dependence, unspecified, uncomplicated
CPT/HCPCS: 99282